=== PATIENT | female | born 1995 | race Two or more races ===

== ENCOUNTER → 2023-08-23 | Emergency (ER) | payer OTHER ==
[~2023-08-23] VITALS: Ht 170.2 cm; Wt 104.3 kg
[~2023-08-23] MED LIST: MILLIPRED5 MG; PROVENTIL HFA6.7 GM; SINGULAIR 5MG5 MG
== END | disposition left against medical advice (07) ==
LOC: ER 17:13
DX: Z53.21 Procedure and treatment not carried out due to patient leaving prior to being seen by health care provider (principal)